=== PATIENT | male | born 1950 | race Caucasian/White ===

== ENCOUNTER 2018-10-11 10:45 | Emergency (ER) | payer MEDICARE, BC ==
[2018-10-11 10:53] VITALS: BP 142/81
--- NOTE | 2018-10-11 11:59 | EDM.PDOC ---
ED HPI GENERAL MEDICAL PROBLEM - General Chief Complaint: Lower Extremity Injury/Pain Stated Complaint: right sciatic pain Time Seen by Provider: 10/11/18 11:07 Source of Information: Reports: Patient History Limitations: Reports: No Limitations - History of Present Illness INITIAL COMMENTS - FREE TEXT/NARRATIVE: Patient comes to ER complaining of right sided hip pain/sciatic discomfort. Started Tuesday, 4 days ago. Has been seeing a local chiropractor this week for treatment but no improvement. Not from this area,, just drove here for his chiropractor. No numbness/tingling of affected leg. Feels worse when ambulating. Improved when sitting/laying down. No limb weakness. History of low back surgery/screw placement and left hip replacement. Denies any recent injuries or changes in activity. No abdominal changes/complaints such as abdominal pain, urinary changes or bowel changes. Patient is morbidly obese and carries a significant amount of abdominal fat. He is here hoping for pain medication. No other changes reported. Right Hip Pain Score (Numeric/FACES): 10 - Related Data Allergies Allergy/AdvReac Type Severity Reaction Status Date / Time bee venom protein (honey bee) Allergy Anaphylactic Verified 10/11/18 11:19 Shock Penicillins Allergy Swelling Verified 10/11/18 11:19 Home Meds: Home Meds Albuterol Sulfate [Albuterol Sulfate Hfa] 2 inh INH Q4H PRN 10/11/18 [History] Albuterol/Ipratropium [DuoNeb 3.0-0.5 MG/3 ML] 1 ampule INH QID PRN 10/11/18 [ History] Aspirin [Ecotrin EC] 1 tab PO DAILY 10/11/18 [History] Calcium Carbonate/Vitamin D3 [Calcium 600-Vit D3 800 Caplet] 1 tab PO BID [History] Cetirizine [ZyrTEC] 10 mg PO DAILY 10/11/18 [History] Cholecalciferol (Vitamin D3) [Vitamin D3] 1 tab PO DAILY 10/11/18 [History] Finasteride [Proscar] 5 mg PO DAILY 10/11/18 [History] Fluticasone/Umeclidin/Vilanter [Trelegy Ellipta 100-62.5-25 MCG] 1 inh INH DAILY 10/11/18 [History] Ipratropium [Atrovent] 1 dose INH DAILY 10/11/18 [History] Ketoconazole [Nizoral 2% Crm] 1 dose TOP BID PRN 10/11/18 [History] Levalbuterol HCl [Xopenex] 1 dose INH DAILY 10/11/18 [History] Meclizine [Antivert] 1 tab PO Q4H PRN 10/11/18 [History] Metoprolol Succinate [Toprol Xl] 25 mg PO BEDTIME 10/11/18 [History] Montelukast [Singulair] 10 mg PO BEDTIME 10/11/18 [History] Mupirocin Calcium [Bactroban] 1 dose TOP TID 10/11/18 [History] Omeprazole 20 mg PO DAILY 10/11/18 [History] Potassium Chloride 20 meq PO DAILY 10/11/18 [History] Ramipril 10 mg PO DAILY 10/11/18 [History] Roflumilast [Daliresp] 500 mcg PO BEDTIME 10/11/18 [History] Simethicone [Gas Relief 80] 80 mg PO Q4H PRN 10/11/18 [History] Tamsulosin HCl [Flomax] 0.8 mg PO DAILY 10/11/18 [History] predniSONE [Prednisone] 40 mg PO DAILY #4 tablet 10/11/18 [Rx] rOPINIRole [Requip] 1 tab PO BEDTIME 10/11/18 [History] traMADol [Ultram] 50 mg PO Q6H PRN #12 tab 10/11/18 [Rx] Past Medical History HEENT History: Reports: Cataract, Impaired Vision Cardiovascular History: Reports: Arrhythmia, High Cholesterol, Hypertension Respiratory History: Reports: COPD, Sleep Apnea Gastrointestinal History: Reports: Colon Polyp, GERD Genitourinary History: Reports: Prostate Disorder Musculoskeletal History: Reports: Arthritis, Back Pain, Chronic, Fracture, Osteoarthritis, Other (See Below) Other Musculoskeletal History: Bilateral shoulder problems Endocrine/Metabolic History: Reports: Obesity/BMI 30+, Vitamin D Deficiency Oncologic (Cancer) History: Reports: Other (See Below) Other Oncologic History: facial cancer with cryotherapy Dermatologic History: Reports: Other (See Below) Other Dermatologic History: nasal staph infection - Past Surgical History HEENT Surgical History: Reports: Cataract Surgery, Oral Surgery GI Surgical History: Reports: Colonoscopy, Hernia, Abdominal Musculoskeletal Surgical History: Reports: Other (See Below) Other Musculoskeletal Surgeries/Procedures:: back surgery, left hip arthroplasty , bilateral knee replacements, left arm surgery Social & Family History - Tobacco Use Smoking Status *Q: Never Smoker - Caffeine Use Caffeine Use: Reports: Energy Drinks - Recreational Drug Use Recreational Drug Use: No Review of Systems - Review of Systems Review Of Systems: ROS reveals no pertinent complaints other than HPI. ED EXAM, GENERAL - Physical Exam Exam: See Below Exam Limited By: No Limitations General Appearance: Alert, No Apparent Distress, Obese Eye Exam: Bilateral Eye: EOMI, PERRL Nose: No: Nasal Deformity, Nasal Swelling, Nasal Drainage Throat/Mouth: Normal Lips, Normal Voice, No Airway Compromise Head: Atraumatic, Normocephalic Neck: Supple, Non-Tender, Full Range of Motion Respiratory/Chest: No Respiratory Distress, Lungs Clear, Normal Breath Sounds, No Accessory Muscle Use Cardiovascular: Regular Rate, Rhythm, No Murmur GI/Abdominal: Soft, Non-Tender (Male) Exam: Deferred Rectal (Males) Exam: Deferred Back Exam: No: CVA Tenderness (L), CVA Tenderness (R), Muscle Spasm, Paraspinal Tenderness, Vertebral Tenderness Extremities: Non-Tender, Normal Capillary Refill, Other (unable to elicit tenderness with palpation/nor reproduce pain complaint with palpation of hip and sciatic notch. ) Neurological: Alert, Oriented, Normal Cognition, No Motor/Sensory Deficits Psychiatric: Normal Affect, Normal Mood Skin Exam: Warm, Dry, Normal Color Course - Vital Signs Last Recorded V/S: Last Vital Signs Temp 36.8 C 10/11/18 10:52 Pulse 98 10/11/18 10:52 Resp BP 142/81 H 10/11/18 10:52 Pulse Ox 97 10/11/18 10:52 - Orders/Labs/Meds Orders: Active Orders 24 hr Category Date Time Status Hip Min 2V or 3V Rt [CR] Stat Exams 10/11/18 10:55 Taken Ketorolac [Toradol] Med 10/11/18 11:53 Once 60 mg IM ONETIME ONE predniSONE Med 10/11/18 11:53 Once 40 mg PO ONETIME ONE - Re-Assessments/Exams Free Text/Narrative Re-Assessment/Exam: 10/11/18 12:00 Right hip xray shows hardware in lumbar spine from previous surgery, degenerative changes. Observing patient it appears that he can move around well, including changing positions from sitting to laying down and vice versa. Negative straight leg raise. Sensation intact. Has long history of chronic musculoskeletal pain. For now will treat acutely with IM Toradol and PO Prednisone. 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 Importance of diet/weight management reviewed. To follow up otherwise as needed. Departure - Departure Time of Disposition: 12:15 Disposition: Home, Self-Care 01 Condition: Good Clinical Impression: Acute right hip pain, Right sciatic nerve pain - Discharge Information *PRESCRIPTION DRUG MONITORING PROGRAM REVIEWED*: No *COPY OF PRESCRIPTION DRUG MONITORING REPORT IN PATIENT KACIE: No Prescriptions: predniSONE [Prednisone] 40 mg PO DAILY #4 tablet traMADol [Ultram] 50 mg PO Q6H PRN #12 tab PRN Reason: Pain Instructions: Sciatica, [id number] Referrals: Eddy Cameron MD [Primary Care Provider] - Additional Instructions: Follow up with your primary provider on Tuesday or Tuesday for recheck. You may need referral to PT or additional imaging if pain continues. OK to take Tylenol with your meds, but avoid other NSAIDs such as Motrin or Aleve if you are on Celebrex as it is too hard on the kidneys and stomach to take large doses of that class of medication. Follow up otherwise as needed. - My Orders Last 24 Hours: My Active Orders 10/11/18 10:55 Hip Min 2V or 3V Rt [CR] Stat 10/11/18 11:53 Ketorolac [Toradol] 60 mg IM ONETIME ONE predniSONE 40 mg PO ONETIME ONE - Assessment/Plan Last 24 Hours: My Active Orders 10/11/18 10:55 Hip Min 2V or 3V Rt [CR] Stat 10/11/18 11:53 Ketorolac [Toradol] 60 mg IM ONETIME ONE predniSONE 40 mg PO ONETIME ONE
[2018-10-11] MEDS: Ketorolac 60 MG/2 ML SDV IM ONE (12:11)
[2018-10-11] MEDS: predniSONE 20 MG Tab PO ONE (12:12)
== END 2018-10-11 12:28 | disposition home or self-care (01) ==
LOC: LL.ED 10:45
DX: M25.551 Pain in right hip (principal); M54.31 Sciatica, right side; E78.00 Pure hypercholesterolemia, unspecified; I10 Essential (primary) hypertension; J44.9 Chronic obstructive pulmonary disease, unspecified; Z91.030 Bee allergy status; Z88.0 Allergy status to penicillin; Z79.82 Long term (current) use of aspirin; Z79.899 Other long term (current) drug therapy
CPT/HCPCS: 96372; 99283-25; A9270-GY; J1885